=== PATIENT | female | born 1995 | race Two or more races ===

== ENCOUNTER 2020-04-10 00:40 | Inpatient (IN) | payer OTHER ==
[2020-04-10] MEDS ORDERED: ELECTROLYTE-148 SOLN 1,000 ML IV SCH (02:00)
[2020-04-10] MEDS ORDERED: DINOPROSTONE 10 MG VAGINAL SUPPOSITORY VG ONE (02:45)
[2020-04-10 03:11] LABS: BASO % 0.2 % (0-2.0); EOS % 0.6 % (0-4.5); HEMOGLOBIN 11.3 GM/dL (10.7-15.3); LYMPH % 22.5 % (8-40); MCH 32.2 pg (25.7-33.7); MCHC 34.3 g/dl (32.0-36.0); MEAN CELL VOLUME 93.9 fl (80-96); MEAN PLT VOLUME 8.6 fl (7.5-11.1); MONO % 9.3 % (3.8-10.2); NEUT % 67.4 % (42.8-82.8); PLATELET COUNT 189 K/MM3 (134-434); RBC 3.52 M/mm3 (3.60-5.2); RDW 16.8 % (11.6-15.6); WHITE BLOOD COUNT 6.3 K/mm3 (4.0-10.0)
[2020-04-10 03:31] LABS: BLOOD UREA NITROGEN 14.8 mg/dL (7-18); CALCIUM 8.9 mg/dL (8.5-10.1); INR 0.93 (0.83-1.09); PROTHROMBIN TIME (PATIENT) 11.3 SEC (9.7-13.0)
[2020-04-10 03:35] LABS: CREATININE 0.6 mg/dL (0.55-1.3)
[2020-04-10 03:38] VITALS: BMI 37.1
[2020-04-10] MEDS ORDERED: DEXTROSE 5%-LACTATED RINGERS 1,000 ML IV SCH (07:15)
[2020-04-10] MEDS ORDERED: OXYTOCIN 30 UNITS in 0.9% NS 30 UNIT/500 ML INFUS.BAG IVPB SCH (07:15)
[2020-04-10] MEDS ORDERED: AMPICILLIN SODIUM 2 GM VIAL ONE (10:34)
[2020-04-10] MEDS ORDERED: AMPICILLIN - 2 GM in SODIUM CHLORIDE 100 ML IVPB ONE (10:40)
[2020-04-10] MEDS ORDERED: FENTANYL/BUPIVACAINE/NS/PF - PCEA - 50 ML DISP.SYRIN EP ONE ×2 (11:14→16:11)
[2020-04-10] MEDS ORDERED: PCA PUMP NR ONE (11:14)
[2020-04-10] MEDS ORDERED: BUPIVACAINE HCL/PF 0.25% (2.5MG/ML) 10 ML VIAL ONE (11:15)
[2020-04-10] MEDS ORDERED: NALOXONE HCL 0.4 MG/ML VIAL IVPUSH PRN (11:49)
[2020-04-10] MEDS ORDERED: FENTANYL/BUPIVACAINE/NS/PF - PCEA - 50 ML DISP.SYRIN EP SCH (12:00)
[2020-04-10] MEDS ORDERED: OXYTOCIN 30 UNITS in 0.9% NS 30 UNIT/500 ML INFUS.BAG IVPB ONE (12:13)
[2020-04-10] MEDS ORDERED: AMPICILLIN SODIUM 1 GM VIAL ONE (14:07)
[2020-04-10] MEDS: AMPICILLIN - 1 GM in SODIUM CHLORIDE 100 ML IVPB SCH ×3 (14:20→23:18)
[2020-04-10] MEDS ORDERED: OXYTOCIN 20 UNITS in 0.9% NS 20 UNIT/1,000 ML INFUS.BAG IV ONE (16:05)
[2020-04-10] MEDS ORDERED: WITCH HAZEL 50% (TUCKS) 40 PAD/JAR PAD TP PRN (17:20)
[2020-04-10] MEDS ORDERED: BENZOCAINE 20% 57 GM BOTTLE TP PRN (17:20)
[2020-04-10] MEDS ORDERED: BENZOCAINE 28 GM HEMORRHOIDAL OINTMENT TP PRN (17:20)
[2020-04-10] MEDS ORDERED: BISACODYL 10 MG SUPP.RECT RC PRN (17:20)
[2020-04-10] MEDS ORDERED: oxyCODONE HCL 5 MG TABLET PO PRN (17:20)
[2020-04-10] MEDS ORDERED: METHYLERGONOVINE MALEATE 0.2 MG/1 ML AMP IM PRN (17:20)
[2020-04-10] MEDS ORDERED: OXYTOCIN 20 UNITS in 0.9% NS 20 UNIT/1,000 ML INFUS.BAG IV SCH (17:30)
[2020-04-10] MEDS ORDERED: ACETAMINOPHEN 325 MG TABLET (FP) ONE (18:42)
[2020-04-10] MEDS: ACETAMINOPHEN 325 MG TABLET (FP) PO PRN (18:45)
[2020-04-11] MEDS: IBUPROFEN 600 MG TABLET (FP) PO PRN ×2 (00:50→10:20)
[2020-04-11] MEDS ORDERED: NIFEdipine E.R. 30 MG TABLET PO ONE (02:45)
[2020-04-11 09:26] LABS: BASO % 0.2 % (0-2.0); EOS % 0.3 % (0-4.5); HEMATOCRIT 28.8 % (32.4-45.2); HEMOGLOBIN 10.1 GM/dL (10.7-15.3); LYMPH % 17.9 % (8-40); MCH 32.6 pg (25.7-33.7); MEAN CELL VOLUME 93.3 fl (80-96); MEAN PLT VOLUME 8.2 fl (7.5-11.1); MONO % 7.5 % (3.8-10.2); NEUT % 74.1 % (42.8-82.8); PLATELET COUNT 160 K/MM3 (134-434); RBC 3.08 M/mm3 (3.60-5.2); RDW 16.8 % (11.6-15.6); WHITE BLOOD COUNT 7.9 K/mm3 (4.0-10.0)
[2020-04-11] MEDS ORDERED: FLU VACCINE (FLULAVAL) PF 60 MCG/0.5 ML SYRINGE 2020-2021 IM ONE (10:00)
[2020-04-11] MEDS ORDERED: DIPHTH,PERTUSS(ACELL),TET 0.5 ML DISP.SYRIN IM ONE (10:00)
[2020-04-11] MEDS: PRENATAL VITAMINS W/ FOLIC ACID TABLET (FP) PO SCH (10:19)
[2020-04-11] MEDS: ACETAMINOPHEN 325 MG TABLET (FP) PO PRN (10:19)
[2020-04-11] MEDS ORDERED: SENNOSIDES/DOCUSATE COMBO (SENNA PLUS) TABLET (UD) PO PRN (22:00)
[2020-04-12] MEDS: IBUPROFEN 600 MG TABLET (FP) PO PRN (01:19)
[2020-04-12] MEDS: ACETAMINOPHEN 325 MG TABLET (FP) PO PRN (01:23)
[2020-04-12] MEDS: PRENATAL VITAMINS W/ FOLIC ACID TABLET (FP) PO SCH (11:22)
[2020-04-12 13:01] VITALS: BP 123/80; PULSE 92; TEMP 98.2
== END 2020-04-12 13:10 | disposition home or self-care (01) | DRG 807 ==
LOC: JLDR 00:40 → J3W 20:05
PROVIDERS: ADMIT Obstetrics & Gynecology; ATTEND Obstetrics & Gynecology
PROC: 10E0XZZ Delivery of Products of Conception, External Approach (ICD-10-PCS; principal; 2020-04-10)
PROC: 0W8NXZZ Division of Female Perineum, External Approach (ICD-10-PCS; 2020-04-10)
PROC: 3E0P7VZ Introduction of Hormone into Female Reproductive, Via Natural or Artificial Opening (ICD-10-PCS; 2020-04-10)
DX: O48.0 Post-term pregnancy (principal); Z37.0 Single live birth; Z3A.41 41 weeks gestation of pregnancy
CPT/HCPCS: 36415; 59409; 80048; 85025; 85610; 85730; 86780; 86850; 86900; 86901; 90715; C9803; G0008; Q2036; U0003